=== PATIENT | female | born 1980 | race American Indian/Alaskan Native ===

== ENCOUNTER 2017-08-15 21:53 | Emergency (ER) | payer MEDICAID ==
[2017-08-15] MEDS ORDERED: MOTRIN PO ONE (23:00)
[2017-08-15 23:17] LABS: Basophils # (Auto) 0.1 K/mm3 (0.0-0.1); Basophils % (Auto) 0.9 % (0.0-1.8); Eosinophils # (Auto) 0.2 K/mm3 (0.0-0.4); Eosinophils % (Auto) 1.6 % (0.0-4.3); Hematocrit 36.8 % (30.3-42.9); Lymphocytes # (Auto) 3.1 K/mm3 (1.2-5.4); Lymphocytes % (Auto) 28.7 % (13.4-35.0); Mean Corpuscular HGB Conc 32 % (30-34); Mean Corpuscular Hemoglobin 30 pg (28-32); Mean Corpuscular Volume 92 fl (79-97); Monocytes # (Auto) 0.6 K/mm3 (0.0-0.8); Monocytes % (Auto) 5.5 % (0.0-7.3); Platelet Count 287 K/mm3 (140-440); Red Blood Count 4.02 M/mm3 (3.65-5.03); Red Cell Distribution Width 12.9 % (13.2-15.2)
[2017-08-16 00:05] LABS: BUN/Creatinine Ratio 25; Blood Urea Nitrogen 15 mg/dL (7-17); Calcium 8.4 mg/dL (8.4-10.2); Hemolysis Index 14
--- NOTE | 2017-08-16 00:16 | XRay Report ---
FINAL REPORT EXAM: XR SPINE LUMBOSACRAL 2-3V HISTORY: lower back pain TECHNIQUE: AP and lateral views of the lumbar spine were submitted. FINDINGS: The disc heights and alignment appear normal. There are 6 [id number] lumbar vertebral bodies. The SI joints are unremarkable. The soft tissues well maintained IMPRESSION: Within normal limits
[2017-08-16] MEDS ORDERED: TORADOL IM ONE (08:23)
--- NOTE | 2017-08-16 08:51 | Emergency Department Report ---
ED Back Pain/Injury HPI - General Chief Complaint: Neuro Symptoms/Deficit Stated Complaint: LOWER BACK SPASM WITH LEG NUMBNESS Time Seen by Provider: 08/16/17 06:15 Source: patient Limitations: No Limitations - History of Present Illness Initial Comments: PT. SAYS SHE WOKE UP WITH THE PAIN IN THE LOW BACK ACROSS,WITH NUMBNESS OF THE LEGS.NO HX OF RECENT TRAUMA MD Complaint: back pain Onset/Timin (DAYS) -: Gradual Similar Symptoms Previously: Yes Place: home Radiation: left leg, right leg Severity: severe Severity scale (0 -10): 10 Quality: sharp Consistency: constant Improves With: none Worsens With: none Context: unknown Associated Symptoms: denies other symptoms Treatments Prior to Arrival: prescription analgesics - Related Data Previous Rx's Medication Instructions Recorded Last Taken Type Baclofen 10 mg PO TID #15 tablet 08/16/17 Unknown Rx Allergies Allergy/AdvReac Type Severity Reaction Status Date / Time adhesive Allergy Rash Verified 08/15/17 22:56 azithromycin Allergy Hives Verified 08/15/17 22:55 cyclobenzaprine Allergy Shortness Verified 08/15/17 22:55 [From Flexeril] of Breath latex Allergy Rash Verified 08/15/17 22:56 silver Allergy Hives Verified 08/15/17 22:57 [From Tegaderm AG Mesh] ED Review of Systems ROS: Stated complaint: LOWER BACK SPASM WITH LEG NUMBNESS Other details as noted in HPI Comment: All other systems reviewed and negative ED Past Medical Hx - Past Medical History Additional medical history: Mitral Valve Prolapse - Surgical History Hx Cholecystectomy: Yes Additional Surgical History: Carpal Tunnel (Right), left knee - Social History Smoking Status: Never Smoker Substance Use Type: None - Medications Home Medications: Home Medications Medication Instructions Recorded Confirmed Last Taken Type Baclofen 10 mg PO TID #15 tablet 08/16/17 Unknown Rx ED Physical Exam - General Limitations: No Limitations General appearance: alert, in no apparent distress - Head Head exam: Present: atraumatic, normocephalic - Eye Eye exam: Present: normal appearance - ENT ENT exam: Present: mucous membranes moist - Neck Neck exam: Present: normal inspection - Respiratory Respiratory exam: Present: normal lung sounds bilaterally. Absent: respiratory distress - Cardiovascular Cardiovascular Exam: Present: regular rate, normal rhythm. Absent: systolic murmur, diastolic murmur, rubs, gallop - GI/Abdominal GI/Abdominal exam: Present: soft, normal bowel sounds. Absent: tenderness - Rectal Rectal exam: Present: deferred - Extremities Exam Extremities exam: Present: normal inspection, tenderness (RIGHT AND LEFT PARASPINAL AND SPINAL TTP). Absent: full ROM, pedal edema - Back Exam Back exam: Present: tenderness (LOW BACK), paraspinal tenderness (LOW LUMBAR AREA), other (NO SENSORY LOSS IN LOWER EXTREM. AND NEGATIVE STRAIGHT LEG RAISE) . Absent: CVA tenderness (L) - Neurological Exam Neurological exam: Present: alert, oriented X3 - Psychiatric Psychiatric exam: Present: normal affect, normal mood - Skin Skin exam: Present: warm, dry, intact, normal color. Absent: rash ED Course Vital Signs 08/15/17 08/16/17 08/16/17 22:47 03:12 03:16 Temperature 98.3 F Pulse Rate 79 Respiratory 16 Rate Blood Pressure 109/76 113/73 Blood Pressure [Left] O2 Sat by Pulse 99 99 100 Oximetry 08/16/17 08/16/17 08/16/17 03:18 03:19 03:30 Temperature 98.0 F Pulse Rate 77 Respiratory 18 18 Rate Blood Pressure 98/65 Blood Pressure 113/73 [Left] O2 Sat by Pulse 98 98 98 Oximetry 08/16/17 08/16/17 08/16/17 03:46 04:00 04:16 Temperature Pulse Rate Respiratory Rate Blood Pressure 98/65 107/71 107/71 Blood Pressure [Left] O2 Sat by Pulse 97 96 96 Oximetry 08/16/17 08/16/17 08/16/17 04:30 04:46 05:00 Temperature Pulse Rate Respiratory Rate Blood Pressure 117/69 117/69 110/66 Blood Pressure [Left] O2 Sat by Pulse 98 97 96 Oximetry 08/16/17 08/16/17 08/16/17 05:16 05:30 05:46 Temperature Pulse Rate Respiratory Rate Blood Pressure 110/66 97/62 97/62 Blood Pressure [Left] O2 Sat by Pulse 99 100 Oximetry 08/16/17 08/16/17 08/16/17 06:00 06:16 06:30 Temperature Pulse Rate Respiratory Rate Blood Pressure 100/56 100/56 100/62 Blood Pressure [Left] O2 Sat by Pulse 96 98 99 Oximetry 03/17/18 03/17/18 03/17/18 06:46 07:00 07:16 Temperature Pulse Rate Respiratory Rate Blood Pressure 100/62 119/68 119/68 Blood Pressure [Left] O2 Sat by Pulse 96 100 98 Oximetry 08/16/17 08/16/17 08/16/17 07:30 08:00 08:30 Temperature Pulse Rate Respiratory Rate Blood Pressure 104/71 97/57 102/53 Blood Pressure [Left] O2 Sat by Pulse 99 Oximetry - Reevaluation(s) Reevaluation #1: 08/16/17 10:24 PT. SAYS SHE IS A BIT BETTER AFTER THE TORADOL ED Medical Decision Making - Lab Data Result diagrams: 08/15/17 23:03 08/15/17 23:03 Critical care attestation.: If time is entered above; I have spent that time in minutes in the direct care of this critically ill patient, excluding procedure time. ED Disposition Clinical Impression: Back spasm Disposition: DC-01 TO HOME OR SELFCARE Is pt being admited?: No Does the pt Need Aspirin: No Condition: Stable Instructions: Muscle Spasm (ED) Additional Instructions: USE A HEAT PAD AT SITE AND AVOID ACTIVITIES THAT WILL MAKE IT WORSE Prescriptions: Baclofen 10 mg PO TID #15 tablet Referrals: PRIMARY CARE, [Primary Care Provider] - 3-5 Days Time of Disposition: 10:28 Print Language: GE[place]GI[place]
[2017-08-16 08:52] LABS: Bilirubin,Urine NEG (Negative); Blood,Urine MOD (Negative); Color,Urine Yellow (Yellow); Mucus,Urine 1+ /HPF; Protein,Urine <15 mg/dL mg/dL (Negative); Urobilinogen,Urine < 2.0 mg/dL (<2.0)
[2017-08-16 10:27] VITALS: BP 79/52
== END 2017-08-16 11:26 | disposition home or self-care (01) ==
LOC: ED 21:53
DX: M62.830 Muscle spasm of back (principal)
CPT/HCPCS: 36415; 72100; 80048; 81001; 84703; 85025; 96372; 99284; J1885